=== PATIENT | male | born 1940 | race African-American/Black ===

== ENCOUNTER 2016-09-09 09:24 | Emergency (ER) | payer MEDICARE, OTHER ==
[2016-09-09] MEDS ORDERED: DUONEB INH ONE (10:31)
[2016-09-09] MEDS ORDERED: METHYLPRED SOD SUCC 125 MG/2 ML VIAL ONE (10:36)
== END 2016-09-09 14:34 | disposition home or self-care (01) ==
LOC: ER 09:24
DX: J44.0 Chronic obstructive pulmonary disease with (acute) lower respiratory infection (principal); J20.9 Acute bronchitis, unspecified; J44.1 Chronic obstructive pulmonary disease with (acute) exacerbation; F17.210 Nicotine dependence, cigarettes, uncomplicated
CPT/HCPCS: 71010; 71020; 87804; 94640; 96374; 99285; J2930